=== PATIENT | female | born 1925 | race Caucasian/White ===

== ENCOUNTER 2016-11-17 08:16 | Emergency (ER) | payer MEDICARE, BC ==
[2016-11-17] MEDS ORDERED: NORMAL SALINE 1,000 ML IV PRN (08:36)
[2016-11-17] MEDS ORDERED: LORazepam 2 MG/ML DISP.SYRIN IV ONE (08:36)
[2016-11-17] MEDS ORDERED: KETOROLAC TROMETHAMINE 30 MG/ML VIAL IV ONE (08:36)
[2016-11-17] MEDS ORDERED: LORazepam 2 MG/ML DISP.SYRIN ONE (09:48)
[2016-11-17] MEDS ORDERED: KETOROLAC TROMETHAMINE 30 MG/ML VIAL ONE (09:48)
--- NOTE | 2016-11-17 09:49 | ERNOTE ---
Lower Extremity HPI - Narrative Date of Service: 11/17/16 - General Lower Extremities Pain: other: right - right posterior buttock pain Time Seen by Provider: 11/17/16 08:31 Source: patient Exam Limitations: clinical condition - Immun/Allergies/Home Medications Immunizations: IMMUNIZATION HX Immunizations Up to Date No History of Influenza Vaccine No Hx Pneumococcal Vaccination No Allergies/Adverse Reactions: Allergies Allergy/AdvReac Type Severity Reaction Status Date / Time No Known Allergies Allergy Unverified 11/17/16 08:48 Home Medications: HOME MEDICATIONS Naproxen 375 mg PO BID #30 tablet 11/17/16 [Last Taken Unknown] Orphenadrine Citrate 100 mg PO BID #30 tab 11/17/16 [Last Taken Unknown] - History of Present Illness Narrative: Right posterior buttock pain. No history of injury. Worse today. Couldn't walk due to pain. Right hip surgery years ago. Brought to the [facility] ER today by ambulance. Occurred: other Location of Incident: home Method of Injury: Reports: other - no history of injury Loss of Consciousness: Reports: no loss of consciousness Modifying Factors - (Improves): Reports: other - nothing Modifying Factors - (Worsens): Reports: jarring, movement Associated Symptoms: Reports: none - was able to walk to bathroom in the ER this morning. Other Injuries: Reports: none Subsequent Symptoms: Denies: sensory loss, numbness, motor loss Prior Treament: Denies: currently on antibiotics Review of Systems - Review of Systems Constitutional: Present: no symptoms reported EYE: Present: no symptoms reported ENT: Present: no symptoms reported Respiratory: Present: no symptoms reported Cardiology: Present: no symptoms reported Gastrointestinal/Abdominal: Present: no symptoms reported Genitourinary: Present: no symptoms reported Musculoskeletal: Present: See HPI Skin: Present: no symptoms reported Neurological: Present: no symptoms reported Endocrine: Present: no symptoms reported Hematologic/Lymphatic: Present: no symptoms reported Psych: Present: no symptoms reported All Other Systems: All systems neg except as marked - Patient's Past Medical History Patient History - Medical: No pertinent hx Patient History - Cardiac/Respiratory: Hypertension Patient History - Cancer: No Hx of Cancer Patient History - Surgical Procedures: Cholecystectomy, Total Hip Replacement LMP (females 10-50): Menopausal - Social History Living Situations: other Abuse History: No History of abuse Smoking Status: Never smoker Alcohol Use: none Drug Use: none - Immunizations Immunizations Up to Date: No Hx Pneumococcal Vaccination: No History of Influenza Vaccine: No Physical Exam - Physical Exam General Appearance: Present: wd/wn, alert, moderate distress, anxious Eye Exam: Normal inspection: bilateral, PERRL: bilateral, EOMI: bilateral Ears, Nose, Throat: Present: normal ENT inspection Neck: Present: normal inspection Respiratory: Present: no respiratory distress, normal breath sounds Cardiovascular/Chest: Present: regular rate, rhythm, no murmur Gastrointestinal/Abdominal: Present: normal bowel sounds, nontender, nondistended, soft, no organomegaly Back Exam: Present: normal inspection Extremity Exam: Present: extremity edema, other - tender right posterior buttock Neurological Exam: Present: alert, oriented, no motor/sensory deficits Skin Exam: Present: normal color, warm/dry ED Progress - Vital Signs Patient's Vital Signs:: I have reviewed the patient's vital signs. Vital Signs: Vital Signs 11/17/16 11/17/16 08:19 09:21 Temperature 36.6 C 36.6 C Pulse Rate 78 78 Respiratory 20 20 Rate Blood Pressure 145/59 145/59 O2 Sat by Pulse 98 98 Oximetry - X-Ray X-Ray #1 X-Ray: hip Interpretation: Reviewed by me - right hip and pelvis xray reported as non acute. - CT/Ultrasound CT/Ultrasound Narrative: I have reviewed the LS CT scan results, which are non acute. they only really show osteoarthritis. the other findings are coincidental. they patient is asymptomatic in respect to them. followup should be based on further clinical need in the future. - Progress/Reassessment Chief Complaint: Hip Pain/Injury Progress:: Improved Departure Clinical Impression: Musculoskeletal pain of right lower extremity - Departure Disposition: Home self-care Condition: Good Instructions: Musculoskeletal Pain Additional Instructions: Followup with your doctor in 1-2 weeks. Prescriptions: Naproxen 375 mg PO BID #30 tablet Orphenadrine Citrate 100 mg PO BID #30 tab
[2016-11-17] MEDS ORDERED: IBUPROFEN 400 MG TABLET PO ONE (09:50)
[2016-11-17] MEDS ORDERED: ORPHENADRINE CITRATE 100 MG TABLET.SA PO ONE (09:50)
[2016-11-17 12:28] VITALS: BP 152/65
== END 2016-11-17 12:21 | disposition home or self-care (01) ==
LOC: ER 08:16
DX: M79.661 Pain in right lower leg (principal)